=== PATIENT | male | born 1945 | race Caucasian/White ===

== ENCOUNTER 2018-11-30 11:35 | Day surgery (SDC) | payer BC ==
[~2018-11-30] VITALS: Ht 185.4 cm; Wt 95.2 kg
[2018-11-30 12:17] VITALS: Ht 185.4 cm; Wt 95.2 kg
[2018-11-30] MEDS ORDERED: LISI10TA2 PO (12:21)
[2018-11-30] MEDS ORDERED: ATOR40TA68 PO (12:21)
[2018-11-30] MEDS ORDERED: ASPI-817 PO (12:21)
[2018-11-30 12:28] VITALS: BP 133/84; PULSE 94; RESP 16
[2018-11-30 12:34] VITALS: BP 133/84; PULSE 94; RESP 18
[2018-11-30] MEDS ORDERED: FENTAnyl 50 MCG/ML VIAL ONE (13:47)
[2018-11-30] MEDS ORDERED: MIDAZOLAM 1 MG/ML 2 ML INJ ONE ×2 (13:47→13:48)
[2018-11-30 14:10] VITALS: BP 127/80; RESP 12
== END 2018-11-30 14:44 | disposition home or self-care (01) ==
LOC: GIL 11:35
PROVIDERS: ATTEND Internal Medicine
DX: Z12.11 Encounter for screening for malignant neoplasm of colon (principal); K57.90 Diverticulosis of intestine, part unspecified, without perforation or abscess without bleeding; I10 Essential (primary) hypertension; Z79.82 Long term (current) use of aspirin
CPT/HCPCS: 45378; J2250; J3010